=== PATIENT | male | born 1965 | race Caucasian/White ===

== ENCOUNTER 2019-07-06 13:11 | Outpatient (CLI) | payer OTHER ==
--- NOTE | 2019-07-07 16:07 | MRI Report ---
Reason: PAIN IN RIGHT KNEE Procedure Date: 07/06/2019 Accession Number: [id number] / [id number] Procedure: MRI - Knee RT W/O CPT Code: FULL RESULT: EXAM: RIGHT KNEE MRI WITHOUT CONTRAST EXAM DATE: 07/06/2019 02:06 PM. CLINICAL HISTORY: PAIN IN RIGHT KNEE. COMPARISON: None. TECHNIQUE: Multiplanar, multisequence T1-weighted and fluid-sensitive sequences of the knee without contrast. Other: None. FINDINGS: Bones: No fractures or subluxations. No marrow edema. No bone lesions. Articular Cartilage: Focal full-thickness cartilage loss at the far lateral margin of the trochlea measuring proximally 0.5 x 3 cm, with underlying subchondral edema. Shallow partial thickness cartilage loss at the central patella without subchondral edema. Medial compartment articular cartilage is intact. Focal 1 x 1 cm area of deep partial-thickness cartilage loss at the central weightbearing lateral femoral condyle with superimposed full-thickness fissuring and small foci of subchondral edema. Tibial articular cartilage is intact. Medial Meniscus: The medial meniscus is intact. Lateral Meniscus: The lateral meniscus is intact. Cruciate Ligaments: The anterior and posterior cruciate ligaments are intact. Collateral Ligaments: The medial collateral and lateral collateral ligamentous structures are intact. Tendons: The quadriceps, patellar, semimembranosus, and popliteus tendons are unremarkable. Musculature: No edema or fatty atrophy. Other: Moderate sized knee joint effusion with synovitis. Small amount of fluid decompresses into the popliteus tendon sheath. No popliteal cyst. No loose bodies. The medial and lateral retinacula are intact. The subcutaneous tissues and fat pads are unremarkable. IMPRESSION: 1. Patellofemoral osteoarthritis, with a 0.5 x 3 cm area of full-thickness cartilage loss and underlying subchondral marrow edema at the far lateral margin of the trochlea. There is also deep partial-thickness cartilage loss at the central weightbearing lateral femoral condyle small foci of subchondral edema. Intact medial compartment articular cartilage. 2. Intact menisci, cruciate ligaments, and collateral ligaments. 3. Moderate-sized knee joint effusion with synovitis. [facility]
== END 2019-07-06 13:12 | disposition home or self-care (01) ==
LOC: DI 13:11
DX: M17.11 Unilateral primary osteoarthritis, right knee (principal); M65.9 Synovitis and tenosynovitis, unspecified